=== PATIENT | male | born 1950 | race African-American/Black ===

== ENCOUNTER 2019-03-18 07:52 | Emergency (ER) | payer MEDICARE, OTHER, MEDICAID ==
[~2019-03-18] VITALS: Ht 185.4 cm; Wt 96.0 kg
[~2019-03-18 07:52] MED LIST: AMLO5TAB4 PO; ASPI-1073 PO; ASPI-518 PO; DIPH1TAB24 PO; GABA-529 PO; LISI-651 PO; LISI10TA5 PO; METF-414 PO; VIC PO
[2019-03-18] MEDS ORDERED: KETOROLAC 60MG/2ML VIAL IM ONE (08:45)
[2019-03-18 09:43] VITALS: BP 164/92
== END 2019-03-18 09:43 | disposition home or self-care (01) ==
LOC: ER 07:52
DX: M25.512 Pain in left shoulder (principal); I10 Essential (primary) hypertension; E11.9 Type 2 diabetes mellitus without complications
CPT/HCPCS: 96372; 99283; J1885